=== PATIENT | female | born 1935 | race Caucasian/White ===

== ENCOUNTER 2019-06-28 15:21 | Outpatient (CLI) | payer MEDICARE ==
--- NOTE | 2019-06-28 15:52 | RAD ---
EXAM: XR Lumbar Spine 2 Or 3 View PROVIDED CLINICAL HISTORY: Right-sided low back pain with pain radiating to right leg. Low back radiculopathy. COMPARISON: None FINDINGS: There are 5 nonrib-bearing lumbar-type vertebral bodies. Postsurgical changes related to posterior fu brian of the L3-4 and L4-5 levels is noted. Intradiscal prostheses are present at these levels. No hardware complication is present. The pedicular screws in the L3 vertebral body approach the most sup erior aspect of the vertebral body. There is slight grade 1 anterolisthesis of L4 on L5. The vertebral body heights are within normal limits. No fracture is appreciated. Multiple phleboliths overlie the pelvis. Vascular calcifications are seen overlying the left upper qu adrant and involving the abdominal aorta. IMPRESSION: Postoperative changes lower lumbar spine
== END 2019-06-28 15:22 | disposition home or self-care (01) ==
LOC: NAV RAD 15:21
PROVIDERS: ATTEND Family Medicine
DX: M54.16 Radiculopathy, lumbar region (principal); M54.5 Low back pain; Z98.1 Arthrodesis status
CPT/HCPCS: 72100

== ENCOUNTER 2019-08-30 12:00 | Outpatient (CLI) | payer MEDICARE ==
--- NOTE | 2019-08-30 12:47 | RAD ---
EXAM: XR Thoracic Spine 3 V STANDARD PROVIDED CLINICAL HISTORY: Back pain COMPARISON: None FINDINGS: Thoracic alignment appears normal. Vertebral body heights appear preserved. Multilevel thoracic disc degenerative changes are seen. Atherosclerosis is noted. Pedicles appear intact. No lytic or blastic lesions are radiographically apparent. IMPRESSION: Thoracic disc degenerative change.
--- NOTE | 2019-08-30 13:36 | RAD ---
CERVICAL SPINE 4 VIEWS: HISTORY: Pain. COMPARISON: Cervical spine CT from 2018 for reference. FINDINGS: There is narrowing of the C1-2 articulation on the open mouth odontoid view, greater on the left. The upper ribs are intact. No acute fracture of the cervical spine. Multilevel degenerative disk sp portia height loss at C3-4, C4-5, and C5-6. Moderate narrowing at C6-7. There is 3 mm at C3-4 and 4 mm at C4-5 anterolisthesis. This is due to facet arthropathy at these le vels. IMPRESSION: Moderate spondylosis. No acute abnormality. POS: HOME
== END 2019-08-30 12:01 | disposition home or self-care (01) ==
LOC: NAV RAD 12:00
PROVIDERS: ATTEND Family Medicine
DX: M53.82 Other specified dorsopathies, cervical region (principal); M54.2 Cervicalgia; M47.812 Spondylosis without myelopathy or radiculopathy, cervical region; M47.814 Spondylosis without myelopathy or radiculopathy, thoracic region
CPT/HCPCS: 72050; 72072